=== PATIENT | male | born 1955 | race Caucasian/White ===

== ENCOUNTER 2020-01-03 11:14 | Emergency (ER) | payer OTHER ==
[~2020-01-03] VITALS: Ht 182.9 cm; Wt 80.9 kg
--- NOTE | 2020-01-03 11:53 | NUR ---
PT BROUGHT BACK FROM TRIAGE WITH CHIEF COMPLAINT OF INABILITY TO PEE SINCE LAST NIGHT.
[2020-01-03 12:36] LABS: ALANINE AMINOTRANSFERASE 49 U/L (12-78); ANION GAP 5 mmol/L (5-15); CALCIUM 9.1 mg/dL (8.5-10.1); CHLORIDE 108 mmol/L (98-107); CREATININE 1.06 mg/dL (0.7-1.3)
[2020-01-03 12:38] LABS: ALKALINE PHOSPHATASE 67 U/L (45-117); BASOPHILS % (AUTO) 1 % (0-1); BILIRUBIN,TOTAL 0.9 mg/dL (0.2-1.0); EOSINOPHILS % (AUTO) 2 % (1-7); LYMPHOCYTES % (AUTO) 17 % (22-44); MEAN CORPUSCULAR HEMOGLOBIN 30.3 pg (27.5-34.5); MEAN CORPUSCULAR HGB CONC 32.9 g/dL (33.2-36.2); MEAN PLATELET VOLUME 8.4 fL (7.4-10.4); MONOCYTES % (AUTO) 9 % (2-9); NEUTROPHILS % (AUTO) 72 % (42-75); PLATELET COUNT 243 x10^3/uL (130-400); RED BLOOD COUNT 4.92 x10^6/uL (4.38-5.82); RED CELL DISTRIBUTION WIDTH 13.3 % (9.4-14.8); TOTAL PROTEIN 7.2 g/dL (6.4-8.2)
[2020-01-03 12:43] LABS: MICROSCOPIC NOT IND
[2020-01-03 12:44] LABS: MD NO
--- NOTE | 2020-01-03 12:46 | NUR ---
Pt resting in bed, call light in reach.
[2020-01-03 12:56] VITALS: BP 125/70
[2020-01-03] MEDS ORDERED: LIDOCAINE 2%,20 ML JEL.PF.APP MM ONE (15:06)
--- NOTE | 2020-01-03 15:27 | NUR ---
BLADDER SCANNED PATIENT AFTER MULTIPLE ATTEMPTS TO VOID, TO TRY TO AVOID HAVING TO PLACE CATHETER, AT HIS REQUEST. POST VOID RESIDUAL WAS 550ML. PLACIDO WAGGONER NOTIFIED. 16FR AREVALO CATHETER PLACED. PATIENT TOLERATED WELL. IMMEDIATEL URINE OUTPUT OBTAINED.
--- NOTE | 2020-01-03 15:50 | NUR ---
Patient given discharge instructions and they have confirmed that they understand the instructions. Patient ambulatory with steady gait.
== END 2020-01-03 15:50 | disposition home or self-care (01) ==
LOC: ED 12:33
DX: R33.9 Retention of urine, unspecified (principal); I50.9 Heart failure, unspecified; E78.5 Hyperlipidemia, unspecified
CPT/HCPCS: 36415; 51702; 80053; 81003; 85025; 99284